=== PATIENT | male | born 1980 ===

== ENCOUNTER 2024-09-01 06:09 | Day surgery (SDC) | payer OTHER ==
[2024-09-01] MEDS ORDERED: DIPHENHYDRAMINE HCL 50 MG/ML VIAL 1ML IV ONE (08:15)
[2024-09-01] MEDS ORDERED: fentaNYL CITRATE 50 MCG/ML AMPUL IV PUSH ONE (08:15)
[2024-09-01] MEDS ORDERED: MIDAZOLAM HCL 2 MG/2 ML VIAL IV ONE (08:15)
== END 2024-09-01 10:03 | disposition home or self-care (01) ==
LOC: AMB-ENDOS 06:09
PROVIDERS: ATTEND Colon & Rectal Surgery
DX: K62.5 Hemorrhage of anus and rectum (principal)